=== PATIENT | female | born 1980 | race Hispanic/Latino ===

== ENCOUNTER → 2023-07-13 | Outpatient (CLI) | payer OTHER ==
[2023-07-13 09:14] LABS: INR < 0.93 (0.85-1.15)
[2023-07-13 09:15] LABS: PARTIAL THROMBOPLASTIN TIME 27.1 SEC (26.3-35.5)
== END | disposition home or self-care (01) ==
LOC: RAH 08:21
PROVIDERS: ATTEND Otolaryngology Plastic Surgery within the Head & Neck
DX: E04.1 Nontoxic single thyroid nodule (principal); Z79.899 Other long term (current) drug therapy; Z79.01 Long term (current) use of anticoagulants
CPT/HCPCS: 10005; 36415; 76942; 85610; 85730; 88173; 88305